=== PATIENT | male | born 1990 | race Caucasian/White ===

== ENCOUNTER 2020-05-10 12:48 | Emergency (ER) | payer OTHER, SELFPAY ==
[2020-05-10 12:52] VITALS: BP 156/93; PULSE 109; RESP 16; TEMP 36.6; O2SAT 96; BMI 40.0
--- NOTE | 2020-05-10 13:12 | ED_ITS ---
HPI - Wound/Laceration General: Chief Complaint: Wound/Laceration Stated Complaint: WOUND/LACERATION Time Seen by Provider: 05/10/20 13:04 Source: patient Mode of arrival: ambulatory Limitations: no limitations History of Present Illness: HPI narrative: Patient is a 29-year-old male who presents to ED today with complaints of a laceration to his right hand that he sustained while at work at [id number]. 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 Patient's last tetanus was in high school. Onset (ago): hour(s) Place: work Patient tetanus UTD: Yes Context: accidental Associated symptoms: Reports no associated symptoms Review of Systems Musc: Reports: extremity pain (R hand) Skin/Breast: Reports: other (laceration R hand) Physical Exam Const: COMMON NORMALS: no acute distress, patient oriented x3, no limitations and alert Extremity: COMMON NORMALS: full ROM GENERAL: Yes normal exam except as noted OTHER: 1.5cm laceration to R palmar ulnar hand; full ROM of digits against resistance; sensory intact; bleeding controlled Neuro: COMMON NORMALS: patient oriented x3, moves all extremities, no focal motor deficits and no sensory deficits noted SENSORIUM/ORIENTATION: Yes alert Skin: OTHER: see extremity Procedures Laceration Laceration 1: Site: hand Side (If applicable): right Size (cm): 1.5 Description: linear Depth: simple, single layer Local Anesthetic: lidocaine 2% Amount of anesthesia used (mL): 1.0 Pre-repair: wound explored and irrigated extensively Skin layer closed with: nylon Size (cm): 4-0 Number of sutures: 3 Technique: simple, interrupted Course Vital Signs: Vital signs: Vital Signs Temperature 97.9 F 05/10/20 12:52 Pulse Rate 109 H 05/10/20 12:52 Respiratory Rate 16 05/10/20 12:52 Blood Pressure 156/93 05/10/20 12:52 Pulse Oximetry 96 05/10/20 12:52 Discharge Plan Discharge Patient Disposition: Home Clinical Impression: Laceration of right hand Qualifiers: Encounter type: initial encounter Foreign body presence: without foreign body Qualified Code(s): S61.411A - Laceration without foreign body of right hand, initial encounter Condition: Stable Discharge Orders: Discharge ED (Routine); Ordered 05/10/20 Ordered By: Tasneem Brown Patient Instructions: Laceration (ED) Activity Restrictions/Additional Instructions: Keep wound clean with warm soap and water several times daily. Monitor for signs of infection such as redness, swelling, drainage. Sutures may be removed in 7 days. Please follow-up with Worker's Comp. as instructed. Coding Level of Care Code ED Priming Machine Operator for Chg Fwd Exam Expanded Problem Focused
[2020-05-10] MEDS: tetanus-diphtheria tox (adult) 0.5 mL SDV IM (13:59)
[2020-05-10] MEDS: lidocaine 2% INJ 20 mL INJECTION (14:01)
== END 2020-05-10 14:19 | disposition home or self-care (01) ==
PROVIDERS: Emergency Provider Physician Assistant
DX: S61.411A Laceration without foreign body of right hand, initial encounter (principal); W26.8XXA Contact with other sharp object(s), not elsewhere classified, initial encounter; Z23 Encounter for immunization
CPT/HCPCS: 12001; 12345; 90471; 90714; 99281; 99282